=== PATIENT | male | born 1945 | race Caucasian/White ===

== ENCOUNTER 2017-03-29 02:08 | Emergency (ER) | payer OTHER, MEDICAID ==
[~2017-03-29] VITALS: Ht 172.7 cm; Wt 82.1 kg
[2017-03-29 02:56] LABS: PLATELET COUNT 186 x10^3mcL (130-400); RED CELL DISTRIBUTION WIDTH 11.9 % (11.5-14.5)
[2017-03-29 02:57] LABS: BASOPHIL % 4.1 % (0-2)
[2017-03-29 03:00] LABS: CALCIUM 8.9 mg/dL (8.5-10.1); CARBON DIOXIDE 26.7 mmol/L (21-32); CHLORIDE SERUM 102 mmol/L (98-107); CREATININE SERUM 1.1 mg/dL (0.7-1.3); GLUCOSE SERUM 111 mg/dL (74-106); POTASSIUM SERUM 4.3 mmol/L (3.5-5.1); SODIUM SERUM 137 mmol/L (136-145)
[2017-03-29 03:04] LABS: ALBUMIN 3.8 g/dL (3.4-5.0); ALKALINE PHOSPHATASE 77 U/L (46-116); ALT/SGPT 29 U/L (16-63); AST/SGOT 22 U/L (15-37); BILIRUBIN TOTAL 0.59 mg/dL (0.20-1.00); CHOLESTEROL 137 mg/dL (<200); PHOSPHOROUS 3.6 mg/dL (2.5-4.9); TOTAL PROTEIN, SERUM 7.9 g/dL (6.4-8.2)
[2017-03-29 03:06] LABS: HDL CHOLESTEROL 34 mg/dL (40-60)
[2017-03-29 04:07] VITALS: BP 132/75
== END 2017-03-29 04:08 | disposition home or self-care (01) ==
LOC: ED 02:08
PROVIDERS: Emergency Medicine
DX: R55 Syncope and collapse (principal); I10 Essential (primary) hypertension; E78.00 Pure hypercholesterolemia, unspecified
CPT/HCPCS: 36415; 83880

== ENCOUNTER 2017-07-24 14:11 | Emergency (ER) | payer OTHER ==
[~2017-07-24] VITALS: Ht 165.1 cm; Wt 88.5 kg
[2017-07-24 14:20] VITALS: BP 166/100; Ht 165.1 cm; Wt 88.5 kg
== END 2017-07-24 14:41 | disposition other institution (70) ==
LOC: ED 14:11
DX: Z02.89 Encounter for other administrative examinations (principal); I10 Essential (primary) hypertension; E78.00 Pure hypercholesterolemia, unspecified